=== PATIENT | female | born 1960 | race Two or more races ===

== ENCOUNTER 2017-09-29 10:07 | Outpatient (CLI) | payer OTHER | END 2017-09-29 10:19 | disposition home or self-care (01) | LOC: MAMO-SONO 10:07 | DX: N60.11 Diffuse cystic mastopathy of right breast (principal); N60.12 Diffuse cystic mastopathy of left breast; Z12.31 Encounter for screening mammogram for malignant neoplasm of breast ==

== ENCOUNTER → 2018-11-15 | Outpatient (CLI) | payer OTHER | END | disposition home or self-care (01) | LOC: MAMO-SONO 11-12 14:15 | DX: N60.11 Diffuse cystic mastopathy of right breast (principal); N60.12 Diffuse cystic mastopathy of left breast; Z12.31 Encounter for screening mammogram for malignant neoplasm of breast ==

== ENCOUNTER 2020-08-22 15:09 | Outpatient (CLI) | payer OTHER | END 2020-08-22 15:21 | disposition home or self-care (01) | LOC: MAMO-SONO 15:09 | PROVIDERS: ATTEND Specialist | DX: N60.11 Diffuse cystic mastopathy of right breast (principal); N60.12 Diffuse cystic mastopathy of left breast ==

== ENCOUNTER 2021-12-19 09:28 | Outpatient (CLI) | payer OTHER | END 2021-12-19 09:46 | disposition home or self-care (01) | LOC: MAMO-SONO 09:28 | PROVIDERS: ATTEND Specialist | DX: N60.11 Diffuse cystic mastopathy of right breast (principal); N60.12 Diffuse cystic mastopathy of left breast ==

== ENCOUNTER 2022-12-22 13:14 | Outpatient (CLI) | payer OTHER | END 2022-12-22 13:28 | disposition home or self-care (01) | LOC: MAMO-SONO 13:14 | PROVIDERS: ATTEND Specialist | DX: N60.11 Diffuse cystic mastopathy of right breast (principal); N60.12 Diffuse cystic mastopathy of left breast; Z12.31 Encounter for screening mammogram for malignant neoplasm of breast ==